=== PATIENT | female | born 1975 | race Caucasian/White ===

== ENCOUNTER 2018-10-23 07:21 | Emergency (ER) | payer OTHER ==
[2018-10-23] MEDS: KETOROLAC 30 MG/ML VIAL (J1885) IV (07:49)
[2018-10-23] MEDS: NS 1,000 ML IV (07:49)
[2018-10-23] MEDS: METOCLOPRAMIDE INJ 10MG/2ML VIAL (J2765) IV (07:49)
[2018-10-23] MEDS: ACETAMINOPHEN 325 MG TAB PO (08:34)
== END 2018-10-23 09:15 | disposition home or self-care (01) ==
LOC: M ED 07:21
DX: R11.2 Nausea with vomiting, unspecified (principal); G43.909 Migraine, unspecified, not intractable, without status migrainosus
CPT/HCPCS: J1885

== ENCOUNTER 2018-11-12 15:30 | Emergency (ER) | payer OTHER ==
[~2018-11-12] VITALS: Ht 167.6 cm; Wt 113.0 kg
[~2018-11-12 15:30] MED LIST: IBUP80TA PO; ZOFR4TAB14 PO
[2018-11-12] MEDS ORDERED: MECL1CHW2 PO (15:52)
[2018-11-12] MEDS ORDERED: SERT50TA PO (15:52)
[2018-11-12 16:42] LABS: BASO % 0.6 % (0.0-1.0); EOS % 0.3 % (0.0-3.0); HEMATOCRIT 42.7 % (36.0-47.0); HEMOGLOBIN 14.5 g/dl (12.0-15.5); LYMPH # 0.3 10^3/uL (1.5-4.5); LYMPH % 3.8 % (24.0-44.0); MEAN CORPUSCULAR HEMOGLOBIN 30.9 pg (27.0-33.0); MEAN CORPUSCULAR VOLUME 90.9 fl (80.0-96.0); MONO # 0.4 10^3/uL (0.0-0.8); MONO % 6.2 % (0.0-5.0); NEUTROPHILS # 6.3 10^3/uL (1.8-7.7); NEUTROPHILS % 88.7 % (36.0-66.0); PLATELET COUNT, AUTOMATED 251 10^3/uL (150-450); WHITE BLOOD COUNT 7.1 10^3/uL (4.0-10.0)
--- NOTE | 2018-11-12 16:46 | REP ---
Portable chest x-ray: Single view. History: Chest pain. Comparison study: February 25, 2018. Findings: The lungs are symmetrically aerated and clear. Pleural angles are sharp. Heart size is normal. There is a mild levoconvex curvature in the thoracic spine. Pulmonary vasculature is not increased. Impression: No active disease. Electronically Signed by Milton Armas MD 11/12/2018 04:37 P
[2018-11-12 16:53] LABS: INR 1.09; PROTHROMBIN TIME 14.2 SECONDS (12.1-14.4)
[2018-11-12 17:13] LABS: ALBUMIN 4.4 GM/DL (3.2-5.2); ALT/SGPT 22 U/L (12-78); BILIRUBIN,DIRECT 0.2 MG/DL (0.0-0.2); BILIRUBIN,TOTAL 0.9 MG/DL (0.2-1.0); BLOOD UREA NITROGEN 8 MG/DL (7-18); CALCIUM LEVEL 9.5 MG/DL (8.5-10.1); CARBON DIOXIDE LEVEL 23 MEQ/L (21-32); CHLORIDE LEVEL 104 MEQ/L (98-107); CK-MB VALUE MASS < 1.0 NG/ML (<3.6); CPK CREATINE PHOSPHOKINASE 91 U/L (26-192); CREATININE FOR GFR 0.82 MG/DL (0.55-1.30); GLOMERULAR FILTRATION RATE > 60.0 (>58); GLUCOSE, FASTING 115 MG/DL (70-100); LIPASE 72 U/L (73-393); NT-PRO BNP 165 PG/ML (<125); POTASSIUM SERUM 3.7 MEQ/L (3.5-5.1); SODIUM LEVEL 138 MEQ/L (136-145); TOTAL PROTEIN 7.9 GM/DL (6.4-8.2); TROPONIN I < 0.02 NG/ML (< 0.10)
[2018-11-12] MEDS ORDERED: KETOROLAC 30 MG/ML VIAL (J1885) IV ONE (17:30)
[2018-11-12] MEDS ORDERED: METOCLOPRAMIDE INJ 10MG/2ML VIAL (J2765) IV ONE (17:30)
[2018-11-12] MEDS ORDERED: NS 1,000 ML IV ONE (17:30)
[2018-11-12] MEDS ORDERED: diphenhydrAMINE INJ 50MG/ML VIAL (J1200) IV STA (17:30)
[2018-11-12] MEDS ORDERED: ACETAMINOPHEN 325 MG TAB PO ONE (18:00)
[2018-11-12 18:01] VITALS: BP 174/90
[2018-11-12 18:53] LABS: INFLUENZA A AMPLIFICATION POSITIVE (NEGATIVE); INFLUENZA B AMPLIFICATION NEGATIVE (NEGATIVE)
[2018-11-12] MEDS ORDERED: OSEL75CA PO (18:55)
--- NOTE | 2018-11-13 11:13 | ECGEPIP ---
Stationary ECG Study [facility] - ED Test Date: 2018-11-12 Pat Name: JOVANA LUTZ Department: Room: - Gender: F Director [employer]: shayna : 1975 Requested By: Davida Mcdaniel Order Number: [id number] Reading MD: Cuco Haley Measurements Intervals [place] Rate: 85 P: 50 ME: 124 QRS: 62 QRSD: 103 T: 51 QT: 367 QTc: 437 Interpretive Statements SINUS RHYTHM INCOMPLETE RIGHT BUNDLE BRANCH BLOCK NO PRIORS FOR COMPARISON Electronically Signed On 11-13-2018 11:13:17 EST by Cuco Haley
== END 2018-11-12 19:28 | disposition home or self-care (01) ==
LOC: EDBD 15:30 → M ED 15:30
DX: J09.X2 Influenza due to identified novel influenza A virus with other respiratory manifestations (principal); R11.10 Vomiting, unspecified; R42 Dizziness and giddiness; Z88.0 Allergy status to penicillin; Z79.899 Other long term (current) drug therapy
CPT/HCPCS: 71045; 80048; 80076; 82550; 82553; 83690; 83880; 84443; 85025; 85610; 87040; 87486; 87502; 87581; 87633; 87798; 93005; 93041; 94760; 96374; 96375; 99285; J1200; J1885; J2765

== ENCOUNTER 2019-10-18 08:52 | Emergency (ER) | payer OTHER, SELFPAY ==
[~2019-10-18] VITALS: Ht 170.2 cm; Wt 105.5 kg
[~2019-10-18 08:52] MED LIST changes: +MECL1CHW PO; +OSEL75CA PO; +SERT-141 PO
[2019-10-18] MEDS ORDERED: MELO15TA28 (08:59)
[2019-10-18] MEDS ORDERED: diphenhydrAMINE INJ 50MG/ML VIAL (J1200) IV STA (09:10)
[2019-10-18] MEDS ORDERED: METOCLOPRAMIDE INJ 10MG/2ML VIAL (J2765) IV ONE (09:15)
[2019-10-18] MEDS ORDERED: KETOROLAC 30 MG/ML VIAL (J1885) IV ONE (09:15)
[2019-10-18] MEDS ORDERED: NS 1,000 ML IV ONE (09:15)
[2019-10-18 12:54] VITALS: BP 167/88
== END 2019-10-18 12:52 | disposition home or self-care (01) ==
LOC: M ED 08:52
DX: G43.709 Chronic migraine without aura, not intractable, without status migrainosus (principal); F33.9 Major depressive disorder, recurrent, unspecified; Z79.899 Other long term (current) drug therapy; Z88.0 Allergy status to penicillin
CPT/HCPCS: 96374; 96375; 99284; J1200; J1885; J2765

== ENCOUNTER 2021-05-14 21:21 | Emergency (ER) | payer OTHER, SELFPAY ==
[~2021-05-14] VITALS: Ht 167.6 cm; Wt 103.1 kg
[~2021-05-14 21:21] MED LIST changes: +MELO15TA28
[2021-05-14 21:22] VITALS: BP 158/98
[2021-05-14] MEDS ORDERED: CLIN300C6 PO (21:35)
[2021-05-14] MEDS ORDERED: FLUC150T PO (21:35)
[2021-05-14] MEDS ORDERED: LISI10TA22 PO (21:36)
[2021-05-14] MEDS ORDERED: ONDANSETRON 4 MG ORAL DISINTEGRATING TAB PO ONE (23:50)
[2021-05-15] MEDS ORDERED: KETOROLAC 60MG 2ML VIAL IM ONE (01:20)
--- NOTE | 2021-05-15 01:23 | REPVR ---
PROCEDURE INFORMATION: Exam: CT Head Without Contrast Exam date and time: 05/14/2021 12:42 AM Age: 46 years old Clinical indication: Dizziness TECHNIQUE: Imaging protocol: Computed tomography of the head without contrast. Radiation optimization: All CT scans at this facility use at least one of these dose optimization techniques: automated exposure control; mA and/or kV adjustment per patient size (includes targeted exams where dose is matched to clinical indication); or iterative reconstruction. COMPARISON: No relevant prior studies available. FINDINGS: Brain: Normal. No hemorrhage. Unremarkable white matter. No mass effect. Cerebral ventricles: No ventriculomegaly. Paranasal sinuses: Visualized sinuses are unremarkable. No fluid levels. Mastoid air cells: Left middle ear and mastoid opacification, correlate for otitis. Bones/joints: Unremarkable. No acute fracture. Soft tissues: Unremarkable. IMPRESSION: 1. No acute intracranial abnormality. 2. Left middle ear and mastoid opacification, correlate for otitis. Electronically signed by: Torrey Hankins On 05/15/2021 01:23:42 AM
[2021-05-15] MEDS ORDERED: DOXYCYCLINE HYCLATE 100MG TABLET PO ONE (01:40)
[2021-05-15] MEDS ORDERED: ONDA4TAB6 PO (01:50)
[2021-05-15] MEDS ORDERED: DOXY1CAP62 PO (01:56)
[2021-05-15] MEDS ORDERED: CETI-24 PO (01:56)
--- NOTE | 2021-05-18 13:07 | ED PDOC ---
Post-Departure Follow-Up radiology report faxed to Davida Mc MD May 18, 2021 13:07
== END 2021-05-15 02:15 | disposition home or self-care (01) ==
LOC: M ED 21:21
DX: H66.92 Otitis media, unspecified, left ear (principal); R42 Dizziness and giddiness; R11.2 Nausea with vomiting, unspecified; Z79.899 Other long term (current) drug therapy; Z88.0 Allergy status to penicillin
CPT/HCPCS: 70450; 96372; 99282; J1885; Q0162

== ENCOUNTER → 2023-06-19 | Outpatient (CLI) | payer OTHER ==
[~2023-06-19] MED LIST changes: +CETI-24 PO; +CLIN-250 PO; +DOXY-443 PO; +FLUC150T9 PO; +LISI10TA22 PO; +ONDA4TAB6 PO
== END ==
LOC: M WUC 13:00
PROVIDERS: ATTEND Chiropractor
DX: M54.13 Radiculopathy, cervicothoracic region (principal); M99.01 Segmental and somatic dysfunction of cervical region; M51.34 Other intervertebral disc degeneration, thoracic region; M99.02 Segmental and somatic dysfunction of thoracic region; M54.50 Low back pain, unspecified; M99.03 Segmental and somatic dysfunction of lumbar region; M51.36 Other intervertebral disc degeneration, lumbar region; M50.30 Other cervical disc degeneration, unspecified cervical region